=== PATIENT | female | born 1970 | race Two or more races ===

== ENCOUNTER → 2019-09-18 | Outpatient (CLI) | payer OTHER ==
--- NOTE | 2019-09-18 11:12 | RAD ---
EXAM: Dual energy x-ray absorptiometry (DEXA). HISTORY: Postmenopausal female presents for osteoporosis screening. COMPARISON: None. TECHNIQUE: Dual energy x-ray absorptiometry of the lumbar spine and right hip was performed. Calculation of bone mineral density based on standard deviations above or below the expected young adult normal value (T-score) was completed. FINDINGS: The average bone mineral density in the 1st through 4th lumbar vertebrae is 1.070 g/cmxcm, corresponding with a T-score of -0.9. The average total bone mineral density in the right hip is 0.825 g/cmxcm, corresponding with a T-score of -1.1. IMPRESSION: 1. Osteopenia measured at the right hip. 2. Normal bone mineral density measured at the lumbar spine. Note: Definitions established by the World Health Organization: 1. Normal: T-score is -1.0 or above. 2. Osteopenia: T-score is between -1.0 and -2.5 . 3. Osteoporosis: T-score is -2.5 or below. Electronically signed by: Aneta Bal MD (09/18/2019 11:09 AM) [facility]
--- NOTE | 2019-10-08 10:04 | RAD ---
History: Routine screening. Technique: Bilateral digital mammographic routine views were obtained with 2-D and 3-D technique and reviewed with CAD - computer aided detection. Comparison: 04/01/2013. Findings: Breast Tissue Density C : The breast tissue is heterogeneously dense. Scattered fibroglandular elements may obscure underlying pathology. There are no suspicious masses, microcalcifications or areas of architectural distortion. Impression: No suspicious findings. BI-RADS Category 1: Negative. Normal interval followup. Your mammogram demonstrates that you have dense breast tissue, which could hide abnormalities, and if you have other risk factors for breast cancer that have been identified, you might benefit from supplemental screening tests that may be suggested by your ordering physician. Dense breast tissue, in and of itself, is a relatively common condition. This information is not provided to cause undue concern, but rather to raise your awareness and to promote discussion with your physician regarding the presence of other risk factors, in addition to dense breast tissue. A report of your mammography results will be sent to you and your physician. You should contact your physician if you have any questions or concerns regarding this report. A mammogram does not have 100% sensitivity and therefore a negative imaging study should not delay further work up of a suspicious abnormality. The patient will receive a letter with the results in the mail. Patient information is entered into the reminder system with a target due date for the next screening mammogram. The patient will receive a reminder. "Our facility is accredited by the [employer] Mammography Program." BI-RADS 1 -- negative findings (within normal)
== END | disposition home or self-care (01) ==
LOC: DXRAD 09:41
PROVIDERS: ATTEND Physician Assistant Medical
DX: Z12.31 Encounter for screening mammogram for malignant neoplasm of breast (principal); M85.88 Other specified disorders of bone density and structure, other site; N95.9 Unspecified menopausal and perimenopausal disorder
CPT/HCPCS: 77063; 77067; 77080

== ENCOUNTER → 2019-09-30 | Outpatient (CLI) | payer OTHER ==
--- NOTE | 2019-09-30 12:35 | RAD ---
ABDOMEN LTD History: Elevated liver enzymes Comparison: None. Findings: Multiple sonographic images of the abdomen are submitted. There is no abnormality of the visualized pancreas. Hepatic echotexture is within normal limits, no focal hepatic lesion demonstrated. Right lobe of the liver measured 14.1 cm longitudinal. Right kidney measured 10 x 4.7 x 3.6 cm, no hydronephrosis. There has been cholecystectomy. Common bile duct is within normal limits at 0.5 cm. There is limited segmental visualization of the inferior vena cava. Impression: 1. No significant abnormality is demonstrated. Electronically signed by: Lb Grimm MD (09/30/2019 12:32 PM) [facility]
== END | disposition home or self-care (01) ==
LOC: US 09:45
PROVIDERS: ATTEND Physician Assistant Medical
DX: R74.8 Abnormal levels of other serum enzymes (principal); Z90.49 Acquired absence of other specified parts of digestive tract
CPT/HCPCS: 76705

== ENCOUNTER → 2019-12-09 | Outpatient (CLI) | payer OTHER ==
[2019-12-11 13:07] LABS: SMOOTH MUSCLE AB 6 Units (0-19)
[2019-12-11 14:07] LABS: MITOCHONDRIAL ABDY <20.0 Units (0.0-20.0)
[2019-12-11 16:07] LABS: ANA INTERP Negative (.)
== END | disposition home or self-care (01) ==
LOC: LAB 10:29
PROVIDERS: ATTEND Internal Medicine Gastroenterology
DX: R94.5 Abnormal results of liver function studies (principal)
CPT/HCPCS: 36415; 83520; 86038; 86255; 86706; 86803; 87340; 83516

== ENCOUNTER → 2020-06-22 | Outpatient (CLI) | payer OTHER ==
--- NOTE | 2020-06-22 14:07 | CARD ---
MR#: [id number] Date of Study: 06/22/2020 Ordering Physician: JONO HARDING, Referring Physician: JONO HARDING, Tech: Navya Calle APPROVED REPORT EXAM: Two-dimensional and M-mode echocardiogram with Doppler and color Doppler. Other Information Quality : AverageHR: 63bpm INDICATION ASD Murmur 2D DIMENSIONS RVDd2.6 (2.9-3.5cm)Left Atrium(2D)2.7 (1.6-4.0cm) IVSd0.9 (0.7-1.1cm)Aortic Root(2D)3.7 (2.0-3.7cm) LVDd4.3 (3.9-5.9cm)LVOT Diameter2.0 (1.8-2.4cm) PWd1.0 (0.7-1.1cm)LVDs3.1 (2.5-4.0cm) FS (%) 28.7 %SV46.2 ml LVEF(%)55.5 (>50%) Aortic Valve AoV Peak Rodriguez.100.7cm/sAoV VTI21.3cm AO Peak GR.4.1mmHgLVOT Peak Rodriguez.79.7cm/s LVOT VTI 17.34cmAO Mean GR.2mmHg GIDEON (VMAX)2.33tp3IRW (VTI)2.58cm2 AI P 1/2 Tokt996lu Mitral Valve MV E Moicylcx22.7cm/sMV DECEL [id number] MV A Okqdghca57.4cm/sE/A Ratio0.9 Pulmonary Valve PV Peak Ryntwmeb75.3cm/sPV Peak Grad.3mmHg Tricuspid Valve TR P. Yadvkqug805vt/sRAP YEEYAHIM4uhOg TR Peak Gr.79hpCxNXEX72eeYv Pulmonary Vein S1 Imgpglps08.2cm/sD2 Rzyhpcih75.2cm/s LEFT VENTRICLE The left ventricle is normal size. There is normal left ventricular wall thickness. The left ventricu lar systolic function is normal and the ejection fraction is within normal range. The Ejection Fracti on is 50-55%. There is normal LV segmental wall motion. Transmitral Doppler flow pattern is Grade I-a bnormal relaxation pattern. RIGHT VENTRICLE The right ventricle is normal size. There is normal right ventricular wall thickness. The right ventr icular systolic function is normal. ATRIA The left atrium size is normal. The right atrium size is normal. The interatrial septum is intact wit h no evidence for an atrial septal defect or patent foramen ovale as noted on 2-D or Doppler imaging. AORTIC VALVE The aortic valve is thickened but opens well. Doppler and Color Flow revealed mild aortic regurgitati on. There is no significant aortic valvular stenosis. Calculated aortic valve area is 2.6 cm2 with ma ximum pressure gradient of 4 mmHg and mean pressure gradient of 2 mmHg. MITRAL VALVE The mitral valve is normal in structure and function. There is no evidence of mitral valve prolapse. There is no mitral valve stenosis. Doppler and Color Flow revealed no mitral valve regurgitation note d. TRICUSPID VALVE The tricuspid valve is normal in structure and function. Doppler and Color Flow revealed trace tricus pid regurgitation with an estimated PAP of 20 mmHg. There is no tricuspid valve stenosis. PULMONIC VALVE The pulmonic valve is not well visualized. Doppler and Color Flow revealed no pulmonic valvular regur gitation. There is no pulmonic valvular stenosis. GREAT VESSELS The aortic root is mildly enlarged. The ascending aorta is normal in size. The IVC is normal in size and collapses >50% with inspiration. PERICARDIAL EFFUSION There is no evidence of significant pericardial effusion. Critical Notification Critical Value: No <Conclusion> The left ventricular systolic function is normal and the ejection fraction is within normal range. Th e Ejection Fraction is 50-55%. There is normal LV segmental wall motion. Doppler and Color Flow revealed mild aortic regurgitation. Signed by : Jono Harding, Electronically Approved : 06/22/2020 14:06:49
--- NOTE | 2020-06-22 14:10 | RAD ---
MR#: [id number] Date of Study: 06/22/2020 Ordering Physician: JONO CAST, Referring Physician: KHUSHBOO GALAVIZ Tech: RT Leah (R) (N) APPROVED REPORT Test Type: Exercise Stress Nurse/Tech: RT Leah (R) (N) Test Indications: Dyspnea Cardiac History: No known cardiac Resting Heart Rate: 73 bpm Resting Blood Pressure: 146/63mmHg Pretest Chest Pain: None Stress Symptoms Dyspnea, leg cramp POST EXERCISE Max HR: 174 bpm 121% of Maximum Predicted HR: 143 bpm Exercise duration: 9:00 min:sec, 3 Stage Exercise capacity: 13.4(8.7) 121%METs Max Blood Pressure: 169/63mmHg Blood Pressure response to exercise: Normal blood pressure response during stress. Heart Rate response to exercise: Normal Arrhythmia: No. ST Change: No. INTERPRETATION Stress EKG Conclusion: Non-specific repolarization changes but no clear evidence of ischemia. Imaging Protocol IMAGE PROTOCOL: Rest Tc-99m/stress Tc-99m 1 day Rest: Stress: Viability: Radiopharm.Tc99m FimimyulbWf25s Sestamibi Gjdt92tFp 33mCi Duration 15min. 15min. Img Date 06/22/2020 06/22/2020 Inj-Img Nzyc51nfd. 60min. Rest Admin Site:IV - Right AntecubitalAdministrator: RT Leah (R)(N) Stress Admin Site: IV - Right AntecubitalAdministrator: RT Leah (R)(N) STRESS DATA End Diast. Vol.64.0mlAv. Heart Rate73.0bpm End Syst. Vol.7.0mlCO Index BSA0.0L/min Myocardial Sbou418.0gEject. Rzvrznix04.0% Stress Rates Pk. Fill Rate3.39EDV/secLVtime Pk. Fill 133.24msec Pk. Empty Rate4.27ESV/secLVtime Pk. Ygwqo777.13msec 09/05 Pk. Fill1.83EDV/sec Stress Scores Regional WT0.00Summed WT0.00 Regional WM0.00Summed WM0.00 The rest and stress images show normal perfusion, normal contraction and thickening. LV Perf. Quant 17 Seg. SSS0.00 17 Seg. SRS0.00 17 Seg. SDS0.00 Stress Defect Extent (% LAD)0.00Rest Defect Extent (% LAD)0.00Rev. Defect Extent (% LAD)0.00 Stress Defect Extent (% LCX) 0.00Rest Defect Extent (% LCX)0.00Rev. Defect Extent (% LCX)0.00 Stress Defect Extent (% RCA)0.00Rest Defect Extent (% RCA)0.00Rev. Defect Extent (% RCA)0.00 Stress Defect Extent (% SANJUANITA)0.00Rest Defect Extent (% SANJUANITA)0.00Rev. Defect Extent (% SANJUANITA)0.00 Other Information Quality:Good Risk Assessment: Low Risk Conclusion 1. Mildly abnormal EKG response with inferolateral TWI suggestive but not confirmatory for subendocar dial ischemia. Most likely these are repolarization changes. 2. Normal exercise capacity. 3. Normal perfusion at stress/rest. 4. Low risk study overall. Signed by : Jono Cast, Electronically Approved : 06/22/2020 14:10:12
== END ==
LOC: NM 08:23
PROVIDERS: ATTEND Internal Medicine Cardiovascular Disease
DX: I35.1 Nonrheumatic aortic (valve) insufficiency (principal); R94.31 Abnormal electrocardiogram [ECG] [EKG]; Q21.1 Atrial septal defect
CPT/HCPCS: 78452; 93017; 93306; A9500; 96376

== ENCOUNTER → 2021-01-20 | Outpatient (CLI) | payer OTHER ==
[2021-01-20 10:21] LABS: ALBUMIN 3.7 g/dL (3.4-5.0); ALBUMIN/GLOBULIN RATIO 0.9 (1.0-1.7); CALCIUM 8.8 mg/dL (8.5-10.1); CREATININE 0.7 mg/dL (0.6-1.0); GFR 87.9; POTASSIUM 4.2 mmol/L (3.5-5.1); TOTAL BILIRUBIN 0.3 mg/dL (0.2-1.0); TOTAL PROTEIN 7.8 g/dL (6.4-8.2)
== END ==
LOC: LAB 09:21
PROVIDERS: ATTEND Internal Medicine Cardiovascular Disease
DX: E78.5 Hyperlipidemia, unspecified (principal)
CPT/HCPCS: 36415; 80053; 80061

== ENCOUNTER 2021-05-02 19:07 | Emergency (ER) | payer OTHER ==
[~2021-05-02] VITALS: Ht 152.4 cm; Wt 50.0 kg
[2021-05-02 19:49] LABS: BILIRUBIN,URINE NEG (NEG); CLARITY,URINE CLOUDY; COLOR,URINE YELLOW; GLUCOSE,URINE NEG (NEG); NITRITE,URINE NEG (NEG); UROBILINOGEN,URINE 0.2 mg/dL (0.2 mg/dL)
[2021-05-02 19:53] LABS: BACTERIA,URINE FEW /HPF (0-FEW)
[2021-05-02 19:54] LABS: SQUAMOUS EPITHELIAL CELL,UR FEW /LPF
--- NOTE | 2021-05-02 22:02 | PHYS DOC ---
Past History Past Surgical History: Cancer Surgery, Cholecystectomy, Other General Adult EDM: Chief Complaint: PAIN ON URINATION HPI: HPI: "It been burning.. to pee... " Patient is a 50 year old female who presents with dysuria Review of Systems: Review of Systems: Constitutional: Denies fever or chills Eyes: Denies change in visual acuity HENT: Denies nasal congestion or sore throat Respiratory: Denies cough or shortness of breath Cardiovascular: Denies chest pain or edema GI: Denies abdominal pain, nausea, vomiting, bloody stools or diarrhea : Denies dysuria Musculoskeletal: Denies back pain or joint pain Integument: Denies rash Neurologic: Denies headache, focal weakness or sensory changes Endocrine: Denies polyuria or polydipsia Lymphatic: Denies swollen glands Psychiatric: Denies depression or anxiety Allergies: Allergies: Allergies Coded Allergies Type Severity Reaction Last Updated Verified No Known Drug Allergies 05/02/21 No Physical Exam: PE: Constitutional: Well developed, well nourished, no acute distress, non-toxic appearance. [] HENT: Normocephalic, atraumatic, bilateral external ears normal, oropharynx moist, no oral exudates, nose normal. [] Eyes: PERRLA, EOMI, conjunctiva normal, no discharge. [] Neck: Normal range of motion, no tenderness, supple, no stridor. [] Cardiovascular:Heart rate regular rhythm, no murmur [] Lungs & Thorax: Bilateral breath sounds clear to auscultation [] Abdomen: Bowel sounds normal, soft, no tenderness, no masses, no pulsatile masses. [] Skin: Warm, dry, no erythema, no rash. [] Back: No tenderness, no CVA tenderness. [] Extremities: No tenderness, no cyanosis, no clubbing, ROM intact, no edema. [] Neurologic: Alert and oriented X 3, normal motor function, normal sensory function, no focal deficits noted. [] Psychologic: Affect normal, judgement normal, mood normal. [] Current Patient Data: Labs: Laboratory Tests Test 05/02/21 19:15 Urine Collection Type Unknown Urine Color Yellow Urine Clarity Cloudy Urine pH 5.5 Urine Specific Morse 1.025 Urine Protein 30 mg/dl (NEG-TRACE) Urine Glucose (UA) Neg mg/dL (NEG) Urine Ketones (Stick) Neg mg/dL (NEG) Urine Blood Large (NEG) Urine Nitrite Neg (NEG) Urine Bilirubin Neg (NEG) Urine Urobilinogen Dipstick 0.2 mg/dL (0.2 mg/dL) Urine Leukocyte Esterase Large (NEG) Urine RBC 11-20 /HPF (0-2) Urine WBC 5-10 /HPF (0-4) Urine Squamous Epithelial Cells Few /LPF Urine Bacteria Few /HPF (0-FEW) Vital Signs: Vital Signs Date Time Temp Pulse Resp B/P (MAP) Pulse Ox O2 Delivery O2 Flow Rate FiO2 05/02/21 19:37 98.4 68 12 154/69 100 Room Air EKG: EKG: [] Radiology/Procedures: Radiology/Procedures: [] Heart Score: Risk Factors: Risk Factors: DM, Current or recent (<one month) smoker, HTN, HLP, family history of CAD, obesity. Risk Scores: Score 0 - 3: 2.5% MACE over next 6 weeks - Discharge Home Score 4 - 6: 20.3% MACE over next 6 weeks - Admit for Clinical Observation Score 7 - 10: 72.7% MACE over next 6 weeks - Early Invasive Strategies Course & Med Decision Making: Course & Med Decision Making Pertinent Labs and Imaging studies reviewed. (See chart for details) [] Dragon Disclaimer: Dragon Disclaimer: This electronic medical record was generated, in whole or in part, using a voice recognition dictation system. Departure Departure: Referrals: PAKO MITCHELL (PCP) GUSTABO VALERIO MD May 02, 2021 22:02
[2021-05-02 22:09] LABS: U PREG PATIENT NEGATIVE (NEG)
[2021-05-02] MEDS ORDERED: PHENAZOPYRIDINE 200 MG TABLET. PO ONE (22:15)
[2021-05-02] MEDS ORDERED: SMZ/TMP 800/160MG TABLET. PO ONE (22:15)
[2021-05-03] MEDS ORDERED: SULF1TAB24 PO (00:17)
[2021-05-03 00:20] VITALS: BP 139/57
== END 2021-05-03 00:20 | disposition home or self-care (01) ==
LOC: ER 19:11
DX: R30.0 Dysuria (principal)
CPT/HCPCS: 81001; 81025; 87077; 87086; 87186; 99283